=== PATIENT | female | born 1980 | race Caucasian/White ===

== ENCOUNTER 2017-05-20 11:10 | Inpatient (IN) | payer OTHER ==
[~2017-05-20] VITALS: Ht 152.4 cm; Wt 67.4 kg
[~2017-05-20 11:10] MED LIST: BUPRTAB PO; BUPRTAB51 PO; HMLI SQ; HYDR25TA5 PO; INSUINJ12 SQ; LAMO200T38 PO; MULTTAB58 PO; OMEG10007 PO; SPIR50TA2 PO
[2017-05-20] MEDS ORDERED: AMPH20TA2 PO (11:41)
[2017-05-20] MEDS ORDERED: LORA-741 PO (11:41)
[2017-05-20] MEDS ORDERED: QUET1TAB32 PO (11:41)
[2017-05-20] MEDS ORDERED: INSPMPHMLG SQ (11:41)
[2017-05-20] MEDS ORDERED: ZOLP5TAB PO (11:41)
[2017-05-20] MEDS ORDERED: AMPH30TA2 PO (11:41)
[2017-05-20] MEDS ORDERED: INSU1INJ33 SQ (11:41)
[2017-05-20] MEDS ORDERED: AMPH10TA2 PO (11:41)
[2017-05-20 11:48] LABS: URINE APPEARANCE CLEAR (CLEAR); URINE BILIRUBIN NEG (NEG); URINE COLOR YELLOW; URINE NITRITE NEG (NEG); URINE PH 6.5 (4.5-7.5); URINE SPECIFIC GRAVITY 1.009 (1.000-1.030); UROBILINOGEN NEG (NEG)
[2017-05-20 11:52] LABS: BASO % 0.6 %; BASO ABS # 0.04 K/uL (0-0.2); COMPLETE YES; EOS % 2.9 %; HEMATOCRIT 41.7 % (37-47); IG% 0.3 %; LYMPH % 30.1 %; LYMPH ABS # 2.16 K/uL (1.2-3.4); MEAN CELL VOLUME 95.6 fL (80-100); MEAN CORPUSCULAR HEMOGLOBIN 32.6 pg (25-34); MEAN CORPUSCULAR HGB CONC 34.1 g/dl (32-36); MEAN PLATELET VOLUME 8.9 fL (7.4-10.4); MONO % 8.5 %; NEUT % 57.6 %; PLATELET COUNT 310 K/uL (130-400); RED BLOOD COUNT 4.36 M/uL (4.2-5.4); WHITE BLOOD COUNT 7.17 K/uL (4.8-10.8)
[2017-05-20 11:54] LABS: MANUAL MICROSCOPIC REQUIRED? YES; REVIEW REQ? NO
--- NOTE | 2017-05-20 12:05 | EMERGENCY ROOM VISIT NOTE ---
History Report prepared by Nayla: Page Veras Under the Supervision of: Dr. Morgan Gregory M.D. First contact with patient: 11:18 Chief Complaint: MENTAL HEALTH EVALUATION Stated Complaint: DEPRESSION-EVAL FOR 3 [facility]OUTH History of Present Illness The patient is a 36 year old female who presents to the Emergency Room for a mental health evaluation. The patient has a history of depression and states that lately it has been getting much worse. She works for [employer] and states that her job is very stressful. She is also in a relationship that is stressful. Mother states that the patient appears to be more withdrawn lately. The patient states that she feels like her typical medications are no longer helping. She saw her psychiatrist about 2 weeks ago and was prescribed a new medication. She was experiencing extreme side effects from this medication so she has stopped taking it. The patient states that she has had some passive thoughts of hurting herself, but denies any concrete plans. She has been experiencing nausea, vomiting, and body aches which she thinks is secondary to her depression. The patient reports a 30 pound weight gain over the past year. She denies HI, visual or auditory hallucinations, fevers, numbness, weakness, trauma, injury, or assault. She has been sleeping fine but notes that she takes medications to help her sleep. She denies any overdose attempts. 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 She denies HI, visual or auditory hallucinations, trauma, injury, or assault. Review of Systems See HPI for pertinent positives & negatives. A total of 10 systems reviewed and were otherwise negative. Past Medical & Surgical Medical Problems: (1) BIPOLAR DISORDER, UNSPECIFIED (2) Depression (3) DIAB MICHELLE WO COMPL, TYPE II OR UNSPEC TYPE, NOT UNCNTRLD Old medical records were reviewed. Nurse's notes were reviewed and I agree with. Family History No pertinent history stated. Social History Smoking Status: Never Smoker Smokeless Tobacco Use: No Alcohol Use: occasionally Drug Use: marijuana Marital Status: , in relationship Housing Status: lives alone Occupation Status: employed Current/Historical Medications Scheduled Amphetamine-Dextroamphetamine 10MG (Adderall 10MG), 10 MG PO QAM Amphetamine-Dextroamphetamine 20MG (Adderall 20MG), 20 MG PO DAILY Amphetamine-Dextroamphetamine 30MG (Adderall 30MG), 30 MG PO QAM Bupropion Hcl (Wellbutrin Xl), 150 MG PO QAM Bupropion Hcl (Wellbutrin Xl), 300 MG PO QAM Insulin Degludec (Tresiba Flextouch), 28 UNITS SQ HS Insulin Human Lispro (Humalog), SQ AC Lamotrigine (Lamictal), 200 MG PO DAILY Multiple Vitamin (Multivitamin), 1 TABLET PO DAILY Quetiapine Fumarate (Seroquel), 2 TAB PO HS Zolpidem Tartrate (Ambien), 5 MG PO HS Scheduled PRN Lorazepam (Ativan), 0.5 MG PO Q12 PRN for Anxiety/Agitation Allergies Coded Allergies: No Known Allergies (Unverified , 05/20/17) Physical Exam Vital Signs Date Time Temp Pulse Resp B/P (MAP) Pulse Ox O2 Delivery O2 Flow Rate FiO2 05/20/17 14:16 75 18 138/82 100 Room Air 05/20/17 12:27 71 18 133/72 99 Room Air 05/20/17 11:14 36.4 81 18 163/87 100 Physical Exam General: Well developed well nourished non ill appearing young female in no acute distress, breathing comfortably on room air. Normal speech HEENT: Normal cephalic atraumatic. Pupils are equal round and reactive to light. Extraocular movements are intact. Oropharynx is pink with moist mucous membranes. No swelling of the mouth lips or tongue. Neck: Supple with a midline trachea. No meningeal signs or stiffness, no JVD or bruits. No Stridor. Chest: Clear to auscultation bilaterally. No wheezes or rhonchi. No increased work of breathing. Heart: regular rate and rhythm. Abdomen: Soft nontender, nondistended without rebound guarding or rigidity. Extremities: No cyanosis clubbing or edema. No calf tenderness or assymetry Spine/Back. Non tender to palpation. No CVA tenderness Skin: Good turgor without rashes. Neurologic exam: Cranial nerves two through 12 are intact. Motor and sensation are intact and symmetrical throughout. Psych: Mildly flattened affect. Medical Decision & Procedures Laboratory Results 05/20/17 11:39 Red Blood Count 4.36, Mean Corpuscular Volume 95.6, Mean Corpuscular Hemoglobin 32.6, Mean Corpuscular Hemoglobin Concent 34.1, Mean Platelet Volume 8.9, Neutrophils (%) (Auto) 57.6, Lymphocytes (%) (Auto) 30.1, Monocytes (%) (Auto) 8.5, Eosinophils (%) (Auto) 2.9, Basophils (%) (Auto) 0.6, Neutrophils # (Auto) 4.13, Lymphocytes # (Auto) 2.16, Monocytes # (Auto) 0.61, Eosinophils # (Auto) 0.21, Basophils # (Auto) 0.04 05/20/17 13:27 Test 05/20/17 11:23 05/20/17 11:39 05/20/17 13:27 Urine Color YELLOW Urine Appearance CLEAR (CLEAR) Urine pH 6.5 (4.5-7.5) Urine Specific [place] 1.009 (1.000-1.030) Urine Protein NEG (NEG) Urine Glucose (UA) NEG (NEG) Urine Ketones NEG (NEG) Urine Occult Blood NEG (NEG) Urine Nitrite NEG (NEG) Urine Bilirubin NEG (NEG) Urine Urobilinogen NEG (NEG) Urine Leukocyte Esterase TRACE (NEG) Urine WBC (Auto) /hpf (0-5) Urine RBC (Auto) /hpf (0-4) Urine Hyaline Casts (Auto) /lpf (0-5) Urine Epithelial Cells (Auto) /lpf (0-5) Urine Bacteria (Auto) (NEG) Urine RBC 0-4 /hpf (0-4) Urine WBC 5-10 /hpf (0-5) Urine Epithelial Cells 10-20 /lpf (0-5) Urine Other Crystals TALC (NONE PRSENT) Urine Bacteria NEG (NEG) Urine Opiates Screen NEG (NEG) Urine Methadone, Qualitative NEG (NEG) Urine Barbiturates NEG (NEG) Urine Phencyclidine (PCP) Level NEG (NEG) Ur Amphetamine/Methamphetamine POS (NEG) MDMA (Ecstasy) Screen POS (NEG) Urine Benzodiazepines Screen NEG (NEG) Urine Cocaine Metabolite NEG (NEG) Urine Marijuana (THC) POS (NEG) White Blood Count 7.17 K/uL (4.8-10.8) Red Blood Count 4.36 M/uL (4.2-5.4) Hemoglobin 14.2 g/dL (12.0-16.0) Hematocrit 41.7 % (37-47) Mean Corpuscular Volume 95.6 fL (80-100) Mean Corpuscular Hemoglobin 32.6 pg (25-34) Mean Corpuscular Hemoglobin Concent 34.1 g/dl (32-36) Platelet Count 310 K/uL (130-400) Mean Platelet Volume 8.9 fL (7.4-10.4) Neutrophils (%) (Auto) 57.6 % Lymphocytes (%) (Auto) 30.1 % Monocytes (%) (Auto) 8.5 % Eosinophils (%) (Auto) 2.9 % Basophils (%) (Auto) 0.6 % Neutrophils # (Auto) 4.13 K/uL (1.4-6.5) Lymphocytes # (Auto) 2.16 K/uL (1.2-3.4) Monocytes # (Auto) 0.61 K/uL (0.11-0.59) Eosinophils # (Auto) 0.21 K/uL (0-0.5) Basophils # (Auto) 0.04 K/uL (0-0.2) RDW Standard Deviation 40.6 fL (36.4-46.3) RDW Coefficient of Variation 11.5 % (11.5-14.5) Immature Granulocyte % (Auto) 0.3 % Immature Granulocyte # (Auto) 0.02 K/uL (0.00-0.02) Total Bilirubin 0.3 mg/dl (0.2-1) Direct Bilirubin 0.1 mg/dl (0-0.2) Aspartate Amino Transf (AST/SGOT) 20 U/L (15-37) Alanine Aminotransferase (ALT/SGPT) 31 U/L (12-78) Alkaline Phosphatase 94 U/L (45-117) Total Protein 7.4 gm/dl (6.4-8.2) Albumin 4.0 gm/dl (3.4-5.0) Lipase 107 U/L (73-393) Thyroid Stimulating Hormone (TSH) 1.540 uIu/ml (0.300-4.500) Human Chorionic Gonadotropin, Qual NEG (NEG) Salicylates Level < 1.7 mg/dl (2.8-20) Acetaminophen Level < 2 ug/ml (10-30) Ethyl Alcohol mg/dL < 3.0 mg/dl (0-3) Anion Gap 7.0 mmol/L (3-11) Est Creatinine Clear Calc Drug Dose 76.9 ml/min Estimated GFR () 99.3 Estimated GFR (Non- 85.7 BUN/Creatinine Ratio 9.2 (10-20) Calcium Level 9.4 mg/dl (8.5-10.1) Medications Administered Medications (Trade) Dose Ordered Sig/Fatimah Route Start Time Stop Time Status Last Admin Dose Admin Ibuprofen (Motrin Tab) 600 mg NOW STAT PO 05/20/17 13:12 05/20/17 13:13 DC 05/20/17 13:18 600 MG ED Course 1118: Past medical records reviewed. The patient was evaluated in room A7, and a complete history and physical examination were performed. 1312: Ibuprofen 600 mg PO 1500: [facility] has accepted the patient for further management. Medical Decision Differential diagnoses includes depression, anxiety, electrolyte or metabolic abnormality, infection, toxicologic process. This patient comes in as described above. She's had some increasing depression. She has denies any suicidal ideations. She was brought in here by her mother. Psychiatric she's been on meds which she says she's been taking but just feels she needs new medications or medication adjustment and that has not been successful as an outpatient. She has any suicidal or homicidal ideations. Blood work was obtained. She was medically cleared. There is nothing to suggest a toxicologic, infectious, electrolyte or metabolic abnormality. She was evaluated by her psychiatric case management team as well as [facility] and they're going to admit her voluntarily for further inpatient treatment and evaluation. Medication Reconcilliation Current Medication List: was personally reviewed by me Blood Pressure Screening Patient's blood pressure: Normal blood pressure Impression Primary Impression: Depression Scribe Attestation The scribe's documentation has been prepared under my direction and personally reviewed by me in its entirety. I confirm that the note above accurately reflects all work, treatment, procedures, and medical decision making performed by me. Departure Information Dispostion Mental Health Acute Care Referrals Marc Bowles D.O. (PCP) Forms HOME CARE DOCUMENTATION FORM, IMPORTANT VISIT INFORMATION Patient Instructions My [facility] Problem Qualifiers Primary Impression: Depression Depression Type: unspecified Qualified Codes: F32.9 - Major depressive disorder, single episode, unspecified
[2017-05-20 12:08] LABS: URINE RBC 0-4 /hpf (0-4)
[2017-05-20 12:10] LABS: URINE BACTERIA NEG (NEG)
[2017-05-20 12:12] LABS: BENZODIAZEPINE, URINE NEG (NEG); COCAINE,URINE NEG (NEG); PHENCYCLIDINE, URINE NEG (NEG)
[2017-05-20 12:20] LABS: PREG INTERNAL NEGATIVE QC NEG CLEAR BACKGROUND; PREG INTERNAL POSITIVE QC POS CONTROL LINE; THYROID STIMULATING HORMONE 1.54 uIu/ml (0.300-4.500)
[2017-05-20 12:31] LABS: ACETAMINOPHEN < 2 ug/ml (10-30)
[2017-05-20] MEDS ORDERED: IBUPROFEN 600 MG TAB PO STA (13:12)
[2017-05-20 13:51] LABS: BUN/CREATININE RATIO 9.2 (10-20); CALCIUM 9.4 mg/dl (8.5-10.1); CREATININE 0.86 mg/dl (0.60-1.20); POTASSIUM 4.3 mmol/L (3.5-5.1)
[2017-05-20 14:16] VITALS: O2SAT 100
[2017-05-20] MEDS ORDERED: MAGNESIUM HYDROXIDE SUSP 30 ML UDC PO PRN (15:00)
[2017-05-20] MEDS ORDERED: ACETAMINOPHEN 325 MG TAB PO PRN (15:00)
[2017-05-20] MEDS ORDERED: ALUMINUM/MAGNESIUM SUSP 30 ML UDC PO PRN (15:00)
[2017-05-20] MEDS ORDERED: hydrOXYzine HCL 25 MG TAB PO PRN ×2 (15:00)
[2017-05-20] MEDS ORDERED: SODIUM CHLORIDE 0.65% NA SOLN 45 ML (OCEAN) PRN (15:00)
[2017-05-20] MEDS ORDERED: BISMUTH SUBSALICYLATE PER ML OMNICELL CHARGE PO PRN (15:00)
[2017-05-20] MEDS ORDERED: LORAZEPAM 0.5 MG TAB PO PRN (15:00)
[2017-05-20] MEDS ORDERED: GLUCOSE 10 TABS/TUBE PO PRN (15:30)
[2017-05-20] MEDS ORDERED: GLUCOSE 40% GEL 15 GM TUBE PO PRN (15:30)
[2017-05-20] MEDS ORDERED: GLUCAGON FOR INJ 1 MG VIAL SQ PRN (15:30)
[2017-05-20] MEDS ORDERED: DEXTROSE 50% 50 ML SYR IV PRN (15:30)
[2017-05-20 17:32] VITALS: BP 114/76; PULSE 75; TEMP 36.8; Ht 152.4 cm; Wt 67.4 kg
[2017-05-20] MEDS ORDERED: QUETIAPINE FUMARATE 100 MG TAB PO SCH (21:00)
[2017-05-20] MEDS ORDERED: INSULIN GLARGINE SOLOSTAR 100 UNITS/ML 3 ML PEN SC SCH (21:00)
[2017-05-20] MEDS: ZOLPIDEM TARTRATE 5 MG TAB PO SCH (21:12)
[2017-05-20] MEDS ORDERED: TRESIBA SQ SCH (22:00)
[2017-05-21 06:51] VITALS: BP_SYST 100; BP_SYST 110; BP_DIAS 65; BP_DIAS 73; PULSE 64; PULSE 73; TEMP 36.5
--- NOTE | 2017-05-21 08:26 | Psychiatric History & Physical ---
History Date of Service May 21, 2017. Identifying Data Elise Box is a 36-year-old female who currently lives in [place], has a history of depression and cannabis abuse, and presented to the ER with worsening mood and SI with thoughts to OD on her insulin. She was admitted voluntarily. Chief Complaint "I knew it was time, I needed to, or something was gonna happen". History of Present Illness Patient reported to the emergency room yesterday reporting worsening depression and suicidality with thoughts to overdose on insulin or Ambien. Stressors include a stressful job working for [employer], and relationship with her boss , whom she is having an affair with. She reports mood has been worsening for the past 2 months, and that her psychiatrist has encouraged her to get inpatient treatment. She has been trying to exercise regularly, journal, and do things she enjoys, but mood has continued to worsen. She says she is "not very happy" with her outpatient psychiatrist, because "my meds are the same as they were when I was here 4 years ago, he tweaks them, but that's my main goal" in this admission. He saw her psychiatrist a couple of weeks ago and was started on an unknown medication, "I think it started with an F," which caused side effects, so she stopped it after 2 days. She had samples of it and cannot recall the name. She feels that her medications "aren't working anymore," and wanted to admission so that they could be reassessed. Her lamotrigine and bupropion XL were also increased recently. She has been on quetiapine for 6 months or so for sleep, and Ambien for a year for sleep, and she takes them every night, "I don't sleep unless I take them." She states Adderall was added about 2 years ago, added for "focus and as an antidepressant." She thinks it helps with energy and focus, but says she wants to "take a break from it while I 'm in here, get it out of my system and start fresh." She plans to resume it after discharge, "there's no way I'm gonna go off of that." She also has Ativan prn which she takes about twice a week. She reports a 20-30 pound weight gain over the past year. Daily anxiety, which is intermittent, but denies panic attacks. She denies any history of psychotic or manic symptoms. She does report monthly episodes of mood swings, untriggered, from normal to depressed, which last about a day. She reports "a marijuana addiction," and smokes 2 bowls a night, and thinks this has contributed to her weight gain. She also binge drinks up to 6 drinks in a setting. She says her primary stressors are work, her relationship, and her marijuana use. She states her job at [employer] is stressful due to "seeing bad things," and she uses exercise and socialization to deal with that stress. Her relationship with her boss is difficult, has been seeing him for over a year, and says it has "messed with my head a lot." She works there on the weekends, and says she "is cedrick forced to see him, and don' t want to end that relationship." She says she talks about it in therapy "all the time," and "there's too much there, I don't want to end it, he provides me companionship." She says "he's a wonderful man, and for some reason, it's just screwing with my head." She is stressed about her marijuana use as she has gained weight and thinks it is due to her smoking, then eating more. She likes it as "it numbs everything, it's a great feeling, being high is one of the greatest feelings I know." She has never had substance abuse treatment, "it's just something I have to do on my own." She is interested in looking into TMS, but is not sure if it covered. She also states she wants to "be out of here by Friday, I'm going to sign myself out if I'm not going to be discharged, because I have a life, I want to be out Friday so I can do things on Friday, and I have to work Friday." Past Psychiatric History Current OP Treatment: psychiatrist (Dr. Hill - since at least 2012), therapist (Paco Page x 1.5 years) Prior Psych Hospitalizations: [facility] (one previous admission in 2013 for depression and suicidality) Access to a Gun: No Suicide Attempts: No Past Medication Trials Citalopram Duloxetine Escitalopram Fluoxetine Venlafaxine XR Lamotrigine - started during 2013 hospitalization (along with Wellbutrin XL) Olanzapine Aripiprazole Something that starts with an "F," got sample recently, cannot recall name Additional Notes Diagnosis during previous hospitalization here was recurrent severe depression without psychosis. She has a history of cutting in high school. Past Medical/Surgical History History of Concussion/Seizure: Yes (1) DIAB MICHELLE WO COMPL, TYPE II OR UNSPEC TYPE, NOT UNCNTRLD (2) Overweight (BMI 25.0-29.9) PCP is Dr. Marc Bowles Allergies Allergies: Coded Allergies: No Known Allergies (Unverified , 05/20/17) Home Medications Scheduled Amphetamine-Dextroamphetamine 10MG (Adderall 10MG), 10 MG PO QAM Amphetamine-Dextroamphetamine 20MG (Adderall 20MG), 20 MG PO DAILY Amphetamine-Dextroamphetamine 30MG (Adderall 30MG), 30 MG PO QAM Bupropion Hcl (Wellbutrin Xl), 150 MG PO QAM Bupropion Hcl (Wellbutrin Xl), 300 MG PO QAM Insulin Degludec (Tresiba Flextouch), 28 UNITS SQ HS Insulin Human Lispro (Humalog), SQ AC Lamotrigine (Lamictal), 200 MG PO DAILY Multiple Vitamin (Multivitamin), 1 TABLET PO DAILY Quetiapine Fumarate (Seroquel), 2 TAB PO HS Zolpidem Tartrate (Ambien), 5 MG PO HS Scheduled PRN Lorazepam (Ativan), 0.5 MG PO Q12 PRN for Anxiety/Agitation Family History History of Suicide: No History of Substance Abuse: No Psychiatric History: Yes (maternal aunt and grandmother with depression) Alcohol Use Alcohol Use In Past 12 Months: Yes (Last use night of 6 drinks; typically 1 drink 1x/week) AUDIT Total Score: 3 Smoking Use Smoking Status: Never Smoker Substance History Admits to daily marijuana use, 2 bowls/night. Has caused weight gain, which she doesn't like. Personal History Lives in: [place] with her best friend Childhood: Raised by both parents, who are still together. Is not very connected with father, but mother is supportive. One younger brother who lives in [place]. 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 Worked at the [employer] in the past , but was fired. Relationship History: (was for 4 years, and years ago after he had an affair; now having an affair with her boss for the past year , who is ) Children: none Spiritual Affiliation: "I believe in God, I go to hinduism and pray." Legal History: none Psychological Trauma History: Denies Hx Traumatic Event Review of Systems Reviewed 10 systems; negative except as stated above. Examination Physical Examination A physical exam was performed [in the ER] [on the medical floor] prior to admission to the unit by [ ]. I accept that physical as correct/medical clearance for the inpatient physical exam. Vital Signs Vital Signs Past 12 Hours Date Time Temp Pulse Resp B/P (MAP) Pulse Ox O2 Delivery O2 Flow Rate FiO2 05/21/17 06:51 36.5 64 16 100/65 73 110/73 Laboratory Results Last 24 Hours Test 05/20/17 11:23 05/20/17 11:39 05/20/17 13:27 05/20/17 17:25 Urine Color YELLOW Urine Appearance CLEAR Urine pH 6.5 Urine Specific [place] 1.009 Urine Protein NEG Urine Glucose (UA) NEG Urine Ketones NEG Urine Occult Blood NEG Urine Nitrite NEG Urine Bilirubin NEG Urine Urobilinogen NEG Urine Leukocyte Esterase TRACE Urine WBC (Auto) /hpf Urine RBC (Auto) /hpf Urine Hyaline Casts (Auto) /lpf Urine Epithelial Cells (Auto) /lpf Urine Bacteria (Auto) Urine RBC 0-4 /hpf Urine WBC 5-10 /hpf Urine Epithelial Cells 10-20 /lpf Urine Other Crystals TALC Urine Bacteria NEG Urine Opiates Screen NEG Urine Methadone, Qualitative NEG Urine Barbiturates NEG Urine Phencyclidine (PCP) Level NEG Ur Amphetamine/Methamphetamine POS MDMA (Ecstasy) Screen POS Urine Benzodiazepines Screen NEG Urine Cocaine Metabolite NEG Urine Marijuana (THC) POS White Blood Count 7.17 K/uL Red Blood Count 4.36 M/uL Hemoglobin 14.2 g/dL Hematocrit 41.7 % Mean Corpuscular Volume 95.6 fL Mean Corpuscular Hemoglobin 32.6 pg Mean Corpuscular Hemoglobin Concent 34.1 g/dl Platelet Count 310 K/uL Mean Platelet Volume 8.9 fL Neutrophils (%) (Auto) 57.6 % Lymphocytes (%) (Auto) 30.1 % Monocytes (%) (Auto) 8.5 % Eosinophils (%) (Auto) 2.9 % Basophils (%) (Auto) 0.6 % Neutrophils # (Auto) 4.13 K/uL Lymphocytes # (Auto) 2.16 K/uL Monocytes # (Auto) 0.61 K/uL Eosinophils # (Auto) 0.21 K/uL Basophils # (Auto) 0.04 K/uL RDW Standard Deviation 40.6 fL RDW Coefficient of Variation 11.5 % Immature Granulocyte % (Auto) 0.3 % Immature Granulocyte # (Auto) 0.02 K/uL Total Bilirubin 0.3 mg/dl Direct Bilirubin 0.1 mg/dl Aspartate Amino Transf (AST/SGOT) 20 U/L Alanine Aminotransferase (ALT/SGPT) 31 U/L Alkaline Phosphatase 94 U/L Total Protein 7.4 gm/dl Albumin 4.0 gm/dl Lipase 107 U/L Thyroid Stimulating Hormone (TSH) 1.540 uIu/ml Human Chorionic Gonadotropin, Qual NEG Salicylates Level < 1.7 mg/dl Acetaminophen Level < 2 ug/ml Ethyl Alcohol mg/dL < 3.0 mg/dl Sodium Level 140 mmol/L Potassium Level 4.3 mmol/L Chloride Level 107 mmol/L Carbon Dioxide Level 26 mmol/L Anion Gap 7.0 mmol/L Blood Urea Nitrogen 8 mg/dl Creatinine 0.86 mg/dl Est Creatinine Clear Calc Drug Dose 76.9 ml/min Estimated GFR () 99.3 Estimated GFR (Non- 85.7 BUN/Creatinine Ratio 9.2 Random Glucose 130 mg/dl Calcium Level 9.4 mg/dl Bedside Glucose 117 mg/dl Test 05/20/17 21:17 Bedside Glucose 168 mg/dl Mental Examination During interview pt is: alert and oriented Impression / Recommendations Impression 36-year-old white female with recurrent depression and cannabis abuse who presents with worsening mood and suicidal ideation in the context of escalating substance use, and ongoing affair with a man, and job stress. She endorses SI with a plan to overdose, and is unable to contract for safety outside the hospital. She is willing or a trial of lithium as augmentation and to increase her quetiapine, while working on psychosocial stressors and decreasing substance abuse. Inventory Assets Strengths: "I have great coping skills," good support system Risk Factors Assessment : Yes /single/: Yes Higher / Fall in social status: No Access to guns: No Health problems: Yes Mental Health Diagnoses: Yes Substance use disorders: Yes Previous attempt: No Previous psychiatric stay: Yes Hopelessness: No Smoker: No Protective Factors Assessment Worship beliefs: Yes : No Responsible for young children: No Employed: Yes Stable relationships: Yes Recommendations (1) Depression -Reviewed medications with patient, and options for trying a different augmenting agent, at her request. Reviewed options of increasing quetiapine, or adding lithium. She would like to do both, so will start lithium 300mg qhs and increase quetiapine to 200mg qhs. Reviewed side effects of lithium, and not being other medications metabolized through the kidney, and the need for monitoring and lab work. Provided her with an up-to-date patient handout about the medication, and she consented to a trial. We will start 300 mg at bedtime tonight, and she will need a trough level after 5 days, which will likely need to be done as an outpatient. She would also like to increase the quetiapine, as sleep has been an issue, and she thinks this may help her decrease her cannabis use. Continue home doses of bupropion XL and lamotrigine. -Patient states she had a lipid profile done within the past year at [facility]. Will ask staff to get a release and send for those records so that they do not have to be repeated here. -Coordinate care with outpatient providers, and get records from Dr. Hill. -Encourage the patient to attend to participate in therapy and programming. Work on healthy coping skills and discharge safety plan. Encourage ongoing work on her relationship and job stress. (2) Cannabis abuse Brief intervention performed and was greater than 5 minutes in length. Patient is smoking marijuana daily, and admits that it is a problem for her, that she only feels good when she is high, and thinks it has contributed to her 30 pound weight gain. Although she wants to stop, she is not willing to commit to getting substance abuse treatment. She was educated about the risks of ongoing substance abuse, and the recommendations for abstinence. (3) DIAB MICHELLE WO COMPL, TYPE II OR UNSPEC TYPE, NOT UNCNTRLD Continue home regimen, diabetic diet, and consult diabetic pharmacist. (4) Overweight (BMI 25.0-29.9) Encourage abstinence from cannabis, continued exercise and healthy diet. CPT Code Initial Hospital Care: 00080 Problem Qualifiers (1) Depression: Depression Type: unspecified Qualified Codes: F32.9 - Major depressive disorder, single episode, unspecified
[2017-05-21] MEDS ORDERED: BuPROPion XL 150 MG TABCR PO SCH (09:00)
[2017-05-21] MEDS: MULTIVITAMIN TAB PO SCH (09:22)
[2017-05-21] MEDS: BuPROPion XL 150 MG TABCR PO SCH (09:22)
[2017-05-21] MEDS ORDERED: PHARMACY GLYCEMIC MGMT CONSULT PRN (12:24)
[2017-05-21] MEDS ORDERED: INSULIN HUMAN LISPRO 100 UNITS/ML 3ML PEN SC SCH (13:00)
[2017-05-21] MEDS: INSULIN HUMAN LISPRO (humaLOG) 100 UNITS/ML VIAL SC SCH ×3 (14:11→20:07)
--- NOTE | 2017-05-21 15:10 | Pharmacy Progress Note ---
Glycemic Control Intl Consult Date of Service May 21, 2017. Scope Glycemic Pharmacist consulted by Dr Davenport on 05/21/17 for glycemic control and to write orders per [facility] inpatient glycemic control protocol Objective Weight (Kilograms): 67.400 Accuchecks BSG (last 24hrs): Test 05/20/17 17:25 05/20/17 21:17 05/21/17 08:40 05/21/17 12:04 Bedside Glucose 117 mg/dl (70-90) 168 mg/dl (70-90) 176 mg/dl (70-90) 142 mg/dl (70-90) Recent Pertinent Medications Outpatient Anti-diabetic Regimen: * Tresiba (insulin degludec) 26-28 units SQ HS * Humalog SSI --> only uses 1-3 units with meals The patient is currently receiving: * Basal insulin: Tresiba (insulin degludec) 28 units every 24 hours given at bedtime * Correctional Insulin: Novolog Correction per scale ACHS Goal Range: Low 110 mg/dL - High 140 mg/dL Correction Factor: 40 mg/dL/unit * Prandial insulin: Per carb ratio of 1 unit per 15 grams CHO consumed Assessment & Plan ASSESSMENT: * 36yo T1DM female with unknown degree of outpatient control. No recent A1c in chart. * Pt states that her outpatient control has improved since switching from Lantus to Tresiba. Pt used to follow with [facility] endo but now follows with PCP Dr Bowles. * Discussed outpatient regimen with patient and that her current regimen dosing distribution puts her at risk for hypo since her regimen is weighted towards basal insulin. Her basal insulin is covering CHO from meals since she is only take a few units of Humalog and 28 units of Tresiba. She likes her insulin regimen this way. She said that she took 26 units last night instead of 28 units since she didn't eat much yesterday and was anticipating not eating much today. She woke up this morning feeling shaky and just got a juice to self treat suspected hypo. She did not check her BSG but felt much better after the juice. * Pt is requesting assistance with Rx cost --> will look into enrolling patient with [facility] PLAN FOR INPATIENT GLYCEMIC CONTROL: * Basal Insulin * Continue pt own med of Tresiba (insulin degludec), will reduce dose slightly to 24 units SQ HS d/t suspected hypo this morning. * Bolus Insulin * NovoLog per scale ACHS or Q6hrs while NPO * Goal Range: Low 110 mg/dL - High 140 mg/dL * Correction Factor: 45 mg/dL/unit * Nutritional / Prandial insulin per carb ratio of 1 unit per 18 grams CHO consumed * A1c with AM labs * Pursue enrollment with [facility] to help with high cost of insulin * Please note that the plan above was derived based on current level of insulin resistance and hospital stress. These recommendations are appropriate for inpatient admission only. Plan of care upon discharge will need to be reassessed to avoid potential outpatient hypo/hyperglycemia. Thank you.
[2017-05-21] MEDS: TRESIBA SQ SCH (20:09)
[2017-05-21] MEDS: LITHIUM CARBONATE SR 300 MG TAB (LITHOBID) PO SCH (21:09)
[2017-05-21] MEDS: ZOLPIDEM TARTRATE 5 MG TAB PO SCH (21:09)
[2017-05-21] MEDS: QUETIAPINE FUMARATE 200 MG TAB PO SCH (21:09)
[2017-05-22 06:48] VITALS: BP_SYST 103; BP_SYST 111; BP_DIAS 69; BP_DIAS 70; PULSE 62; PULSE 67; TEMP 36.9
[2017-05-22 06:57] LABS: ESTIMATED AVERAGE GLUCOSE 169 mg/dl; HA1C FLAG Normal (Normal)
[2017-05-22] MEDS: MULTIVITAMIN TAB PO SCH (08:46)
[2017-05-22] MEDS: BuPROPion XL 150 MG TABCR PO SCH (08:46)
[2017-05-22] MEDS: INSULIN HUMAN LISPRO (humaLOG) 100 UNITS/ML VIAL SC SCH ×4 (09:15→21:01)
--- NOTE | 2017-05-22 13:02 | Psychiatric Progress Notes ---
Progress Note Date of Service May 22, 2017. Interval History Elise Box is a 36-year-old female who currently lives in [place], has a history of depression and cannabis abuse, and presented to the ER with worsening mood and SI with thoughts to OD on her insulin. She was admitted voluntarily. Chief Complaint "OKay". Subjective Patient was seen & assessed interval progress reviewed with Nursing. Staff report she is going to groups and participating, has been cooperative and pleasant in her interactions with others, and had a visit with her mother last evening. She continues to decline a family meeting, and continues to state that she wants to be discharged on Friday. She requested Ativan yesterday for a panic attack, and felt it was helpful. Today, the patient states mood is improved feels she is making progress in groups, "it's nice to know that other people have the same problems as I do." She is also journalling a lot, which she finds helpful. She denies SI, "I've only ever had passive thoughts, wanting to go to sleep and never wake up." She notes she spends time journaling daily, and finds it very helpful to go back and read it later, to identify patterns and triggers. She wants to work on cutting back on marijuana, "and the people I spend time with." She thinks she could spend time with her boyfriend without having sexual contact, "just as friends," although she has not talked to him about it, and doesn't even want him to know she is in the hospital, "I can't put that stress on him". She says she was on Abilify 15m daily and stopped it "cold turkey" a week or two before her symptoms worsened. She was supposed to start a new medication in it's place , the name of which she can't recall. She is tolerating the medication changes well, and denies side effects. She is hopeful that things will continue to improve. She states that she wants to be discharged tomorrow, and wants to make sure that there will be no problems with this. She states that she has family coming into town for the weekend. She is requesting to resume her Adderall 40 mg every morning tomorrow morning, stating that she just wanted to take a break from it for a couple of days, and plans to resume it when she leaves the hospital. She slept well last night, and had no hangover or grogginess this morning. Sleep Information Total Hours of Sleep: 7.75 Meal Information Percent of Breakfast Consumed: 25 Percent of Lunch Consumed: 100 Percent of Dinner Consumed: 50 Mental Status Exam During interview pt is: alert and oriented, cooperative Appearance: appropriately dressed, appropriately groomed Eye contact is: good Motor behavior is: steady gait & station, no abnormal motor movements Speech: normal in rate, rhythm & volume Affect: mood congruent, other (mildly depressed, but reactive and appropriate) Mood is: other Thought process: goal directed Thought content: reality based without delusions Suicidal thought are: denied Homicidal thoughts are: denied Hallucinations: denies auditory, denies visual Cognition: memory grossly intact, attention grossly intact, language grossly intact Intelligence estimated to be: average Insight: fair Judgement: fair Impression 36-year-old white female with recurrent depression and cannabis abuse who presents with worsening mood and suicidal ideation in the context of escalating substance use, and ongoing affair with a man, and job stress. She endorsed SI with a plan to overdose on admission and was unable to contract for safety outside the hospital. She is willing for a trial of lithium as augmentation and to increase her quetiapine, while working on psychosocial stressors and decreasing substance abuse. Plan (1) Depression -Reviewed medications with patient, and options for trying a different augmenting agent, at her request. Reviewed options of increasing quetiapine, or adding lithium. She would like to do both, so will start lithium 300mg qhs and increase quetiapine to 200mg qhs. Reviewed side effects of lithium, and not being other medications metabolized through the kidney, and the need for monitoring and lab work. Provided her with an up-to-date patient handout about the medication, and she consented to a trial. We will start 300 mg at bedtime tonight, and she will need a trough level after 5 days, which will likely need to be done as an outpatient. She would also like to increase the quetiapine, as sleep has been an issue, and she thinks this may help her decrease her cannabis use. Continue home doses of bupropion XL and lamotrigine. -Patient states she had a lipid profile done within the past year at [facility]. Will ask staff to get a release and send for those records so that they do not have to be repeated here. -Coordinate care with outpatient providers, and get records from Dr. Hlil. -Encourage the patient to attend to participate in therapy and programming. Work on healthy coping skills and discharge safety plan. Encourage ongoing work on her relationship and job stress. 05/22 -Continue increased dose of quetiapine and lithium for augmentation of antidepressant treatment. -Patient is requesting to resume Adderall 40 mg every morning tomorrow. We'll defer ongoing management of this medication to her prescribing psychiatrist, Dr. Hill. Reviewed concerns with the patient regarding her ongoing substance abuse and the fact that she is on numerous controlled substances. -Patient is requesting to be discharged home tomorrow. She has a follow-up appointment with her therapist on 05/27/2017, and will need an appointment scheduled with Dr. Hill prior to discharge. -Fasting labs received from [facility]: Last performed on 11/04/2016, cholesterol was elevated at 207, but triglycerides, LDL, and HDL were normal. Hemoglobin A1c was performed this morning and was elevated at 7.5. She will need to follow-up with her PCP for ongoing management. (2) Cannabis abuse Brief intervention performed and was greater than 5 minutes in length. Patient is smoking marijuana daily, and admits that it is a problem for her, that she only feels good when she is high, and thinks it has contributed to her 30 pound weight gain. Although she wants to stop, she is not willing to commit to getting substance abuse treatment. She was educated about the risks of ongoing substance abuse, and the recommendations for abstinence. 05/22 - continue to discuss ways to decrease cannabis use. (3) DIAB MICHELLE WO COMPL, TYPE II OR UNSPEC TYPE, NOT UNCNTRLD Continue home regimen, diabetic diet, and consult diabetic pharmacist. (4) Overweight (BMI 25.0-29.9) Encourage abstinence from cannabis, continued exercise and healthy diet. Discharge / Aftercare Planning Primary Care Physician: Name: Dr Marc Bowles Date of Appointment: Jul 30, 2017 Time of Appointment: 8:35am Psychiatrist: Name: Dr Hill Date of Appointment: Jun 02, 2017 Time of Appointment: 12:30pm Therapist: Name: Paco Casanova Date of Appointment: May 27, 2017 Time of Appointment: 9:00am Visit Code E&M Code: 71794 Inventory Assets Strengths: "I have great coping skills," good support system Risk Factors Assessment : Yes /single/: Yes Higher / Fall in social status: No Health problems: Yes Mental Health Diagnoses: Yes Substance use disorders: Yes Previous attempt: No Previous psychiatric stay: Yes Hopelessness: No Smoker: No Protective Factors Assessment Jain beliefs: Yes : No Responsible for young children: No Employed: Yes Stable relationships: Yes Data Vital Signs Last 24 Hrs: Date Time Temp Pulse Resp B/P (MAP) Pulse Ox O2 Delivery O2 Flow Rate FiO2 05/22/17 06:48 36.9 62 16 103/69 67 111/70 Meds Administered Last 24 Hrs: Meds Administered (Past 24Hrs) Medications (Trade) Dose Ordered Sig/Fatimah Route Start Time Stop Time Status Last Admin Dose Admin Ibuprofen (Motrin Tab) 600 mg NOW STAT PO 05/20/17 13:12 05/20/17 13:13 DC 05/20/17 13:18 600 MG Acetaminophen (Tylenol Tab) 650 mg Q4H PRN PO 05/20/17 15:00 06/19/17 14:59 05/21/17 17:19 650 MG Bupropion HCl (Wellbutrin-Xl Tab) 450 mg QAM PO 05/21/17 09:00 06/20/17 08:59 05/22/17 08:46 450 MG Lamotrigine (Lamictal Tab) 200 mg DAILY PO 05/21/17 09:00 06/20/17 08:59 05/22/17 08:45 200 MG Lorazepam (Ativan Tab) 0.5 mg DAILY PRN PO 05/20/17 15:00 06/19/17 14:59 05/21/17 10:36 0.5 MG Multivitamins (Multivitamin Tab) 1 tab DAILY PO 05/21/17 09:00 06/20/17 08:59 05/22/17 08:46 1 TAB Quetiapine Fumarate (seroQUEL TAB) 100 mg HS PO 05/20/17 21:00 05/21/17 12:20 DC 05/20/17 21:12 100 MG Zolpidem Tartrate (Ambien Tab) 5 mg HS PO 05/20/17 21:00 06/19/17 20:59 05/21/17 21:09 5 MG Non-Formulary Medication (Non-Formulary Patient'S Own Med) 28 ea HS SQ 05/20/17 22:00 05/21/17 15:10 DC 05/20/17 21:19 26 EA Quetiapine Fumarate (seroQUEL TAB) 200 mg HS PO 05/21/17 22:00 06/19/17 20:59 05/21/17 21:09 200 MG [place] Carbon[place] (Lithobid Tab) 300 mg HS PO 05/21/17 22:00 06/20/17 21:59 05/21/17 21:09 300 MG Insulin Human Lispro (humaLOG) SLIDING SCALE ACHS SC 05/21/17 12:00 06/20/17 11:59 05/21/17 14:11 2 UNITS Non-Formulary Medication (Non-Formulary Patient'S Own Med) 24 ea HS SQ 05/21/17 22:00 06/20/17 21:59 05/21/17 20:09 24 EA Lab Results Last 24 Hrs: Last 24 Hours Test 05/21/17 17:01 05/21/17 20:06 05/22/17 06:27 05/22/17 07:37 Bedside Glucose 160 mg/dl 178 mg/dl 162 mg/dl Estimated Average Glucose 169 mg/dl Hemoglobin A1c 7.5 % Problem Qualifiers (1) Depression: Depression Type: unspecified Qualified Codes: F32.9 - Major depressive disorder, single episode, unspecified
[2017-05-22] MEDS: ZOLPIDEM TARTRATE 5 MG TAB PO SCH (21:14)
[2017-05-22] MEDS: QUETIAPINE FUMARATE 200 MG TAB PO SCH (21:15)
[2017-05-22] MEDS: TRESIBA SQ SCH (21:15)
[2017-05-22] MEDS: LITHIUM CARBONATE SR 300 MG TAB (LITHOBID) PO SCH (21:15)
[2017-05-23 07:01] VITALS: BP_SYST 102; BP_SYST 105; BP_DIAS 65; BP_DIAS 71; PULSE 67; PULSE 73; TEMP 36.7
[2017-05-23] MEDS: INSULIN HUMAN LISPRO (humaLOG) 100 UNITS/ML VIAL SC SCH (08:00)
[2017-05-23] MEDS: BuPROPion XL 150 MG TABCR PO SCH (08:46)
[2017-05-23] MEDS: MULTIVITAMIN TAB PO SCH (08:46)
[2017-05-23] MEDS ORDERED: AMPHETAMINE ASP/SULF/DEXTRAMPH 10 MG TAB PO SCH (09:00)
[2017-05-23] MEDS ORDERED: QUET1TAB10 PO (09:14)
[2017-05-23] MEDS ORDERED: LTHCR300 PO (09:14)
--- NOTE | 2017-05-23 09:26 | Discharge Instructions ---
Discharge Information Report Includes Report will include the: Discharge Instructions & Summary Admission Admission Date / Time: May 20, 2017 at 15:00 Reason for Admission: Depression Discharge Discharge Diagnosis / Problem: bipolar depression Condition at Discharge: Good Discharge Goals Goal(s): Decrease discomfort, Improve disease control, Prevent Disease Progression Activity Recommendations Activity Limitations: resume your previous activity . Instructions / Follow-Up Instructions / Follow-Up . SPECIAL CARE INSTRUCTIONS: 1. Follow through with your scheduled aftercare appointments. If unable to keep an appointment, please call to reschedule. 2. Take your medication only as prescribed. Medication should not be changed or stopped without the approval of your doctor. In the event of worsening symptoms or concerns about side effects, contact your doctor immediately. 3. Utilize new healthy coping skills, anger management skills, and stress management skills learned during your hospitalization. Journal feelings and process them with a support person. Identify stressors or situations that may result in relapse, deterioration or inappropriate behaviors and develop a plan to deal with those issues. 4. If your coping skills are ineffective and you are in crisis, contact your outpatient providers for direction. If unable to reach your providers, please call the CAN HELP LINE AT or go to the closest Emergency Room. 5. Avoid alcohol and un-prescribed drugs. 6. You have been provided with the Mental Health Advance Directives Pamphlet for your review. AFTERCARE APPOINTMENTS: * Please call your insurance company prior to your scheduled appointment to confirm your aftercare providers are covered. Take your insurance information to your appointments. . Discharge / Aftercare Planning Primary Care Physician: Name: Dr Marc Bowles Date of Appointment: Jul 30, 2017 Time of Appointment: 8:35am Psychiatrist: Name: Dr Hill Date of Appointment: Jun 02, 2017 Time of Appointment: 12:30pm Therapist: Name Of Therapist: Paco Casanova Date of Appointment: May 27, 2017 Time of Appointment: 9:00am . Follow-Up Care Plan for Follow-Up Care: The patient will see her regular psychiatrist on June 02 Current Hospital Diet Patient's current hospital diet: Diabetes Type 1 Diet Discharge Diet Recommended Diet: Diabetes Type 1 Diet Procedures Procedures Performed: No Pending Studies Pending Studies at Discharge: No Medical Emergencies . Who to Call and When: Medical Emergencies: For questions or emergencies related to your hospital stay, please contact the Inpatient Behavioral Health Unit at [phone]. A refrigerator assembler is on-call 17/03 for the Behavioral Health Unit for emergencies At any time you feel your situation is an emergency, you may also call 911 immediately. . 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 Advance Directives Reason: Declines as Mental Health Visit. Discharge Summary Admission HPI Per the Admitting provider: Patient reported to the emergency room yesterday reporting worsening depression and suicidality with thoughts to overdose on insulin or Ambien. Stressors include a stressful job working for [employer], and relationship with her boss , whom she is having an affair with. She reports mood has been worsening for the past 2 months, and that her psychiatrist has encouraged her to get inpatient treatment. She has been trying to exercise regularly, journal, and do things she enjoys, but mood has continued to worsen. She says she is "not very happy" with her outpatient psychiatrist, because "my meds are the same as they were when I was here 4 years ago, he tweaks them, but that's my main goal" in this admission. He saw her psychiatrist a couple of weeks ago and was started on an unknown medication, "I think it started with an F," which caused side effects, so she stopped it after 2 days. She had samples of it and cannot recall the name. She feels that her medications "aren't working anymore," and wanted to admission so that they could be reassessed. Her lamotrigine and bupropion XL were also increased recently. She has been on quetiapine for 6 months or so for sleep, and Ambien for a year for sleep, and she takes them every night, "I don't sleep unless I take them." She states Adderall was added about 2 years ago, added for "focus and as an antidepressant." She thinks it helps with energy and focus, but says she wants to "take a break from it while I 'm in here, get it out of my system and start fresh." She plans to resume it after discharge, "there's no way I'm gonna go off of that." She also has Ativan prn which she takes about twice a week. She reports a 20-30 pound weight gain over the past year. Daily anxiety, which is intermittent, but denies panic attacks. She denies any history of psychotic or manic symptoms. She does report monthly episodes of mood swings, untriggered, from normal to depressed, which last about a day. She reports "a marijuana addiction," and smokes 2 bowls a night, and thinks this has contributed to her weight gain. She also binge drinks up to 6 drinks in a setting. She says her primary stressors are work, her relationship, and her marijuana use. She states her job at [employer] is stressful due to "seeing bad things," and she uses exercise and socialization to deal with that stress. Her relationship with her boss is difficult, has been seeing him for over a year, and says it has "messed with my head a lot." She works there on the weekends, and says she "is cedrick forced to see him, and don' t want to end that relationship." She says she talks about it in therapy "all the time," and "there's too much there, I don't want to end it, he provides me companionship." She says "he's a wonderful man, and for some reason, it's just screwing with my head." She is stressed about her marijuana use as she has gained weight and thinks it is due to her smoking, then eating more. She likes it as "it numbs everything, it's a great feeling, being high is one of the greatest feelings I know." She has never had substance abuse treatment, "it's just something I have to do on my own." She is interested in looking into TMS, but is not sure if it covered. She also states she wants to "be out of here by Friday, I'm going to sign myself out if I'm not going to be discharged, because I have a life, I want to be out Friday so I can do things on Friday, and I have to work Friday. Hospital Course (1) Depression -Reviewed medications with patient, and options for trying a different augmenting agent, at her request. Reviewed options of increasing quetiapine, or adding lithium. She would like to do both, so will start lithium 300mg qhs and increase quetiapine to 200mg qhs. Reviewed side effects of lithium, and not being other medications metabolized through the kidney, and the need for monitoring and lab work. Provided her with an up-to-date patient handout about the medication, and she consented to a trial. We will start 300 mg at bedtime tonight, and she will need a trough level after 5 days, which will likely need to be done as an outpatient. She would also like to increase the quetiapine, as sleep has been an issue, and she thinks this may help her decrease her cannabis use. Continue home doses of bupropion XL and lamotrigine. -Patient states she had a lipid profile done within the past year at [facility]. Will ask staff to get a release and send for those records so that they do not have to be repeated here. -Coordinate care with outpatient providers, and get records from Dr. Hill. -Encourage the patient to attend to participate in therapy and programming. Work on healthy coping skills and discharge safety plan. Encourage ongoing work on her relationship and job stress. 05/22 -Continue increased dose of quetiapine and lithium for augmentation of antidepressant treatment. -Patient is requesting to resume Adderall 40 mg every morning tomorrow. We'll defer ongoing management of this medication to her prescribing psychiatrist, Dr. Hill. Reviewed concerns with the patient regarding her ongoing substance abuse and the fact that she is on numerous controlled substances. -Patient is requesting to be discharged home tomorrow. She has a follow-up appointment with her therapist on 05/27/2017, and will need an appointment scheduled with Dr. Hill prior to discharge. -Fasting labs received from [facility]: Last performed on 11/04/2016, cholesterol was elevated at 207, but triglycerides, LDL, and HDL were normal. Hemoglobin A1c was performed this morning and was elevated at 7.5. She will need to follow-up with her PCP for ongoing management. (2) Cannabis abuse Brief intervention performed and was greater than 5 minutes in length. Patient is smoking marijuana daily, and admits that it is a problem for her, that she only feels good when she is high, and thinks it has contributed to her 30 pound weight gain. Although she wants to stop, she is not willing to commit to getting substance abuse treatment. She was educated about the risks of ongoing substance abuse, and the recommendations for abstinence. 05/22 - continue to discuss ways to decrease cannabis use. (3) DIAB MICHELLE WO COMPL, TYPE II OR UNSPEC TYPE, NOT UNCNTRLD Continue home regimen, diabetic diet, and consult diabetic pharmacist. (4) Overweight (BMI 25.0-29.9) Encourage abstinence from cannabis, continued exercise and healthy diet. Risk Factors Assessment : Yes /single/: Yes Higher / Fall in social status: No Health problems: Yes Mental Health Diagnoses: Yes Substance use disorders: Yes Previous attempt: No Previous psychiatric stay: Yes Hopelessness: No Smoker: No Protective Factors Assessment Confucianist beliefs: Yes : No Responsible for young children: No Employed: Yes Stable relationships: Yes Day of Discharge Assessment COURSE OF HOSPITALIZATION: The patient was on our unit for 3 days after presenting to the emergency room with acute depression and suicidality. This occurred in the setting of the patient having an affair with her boss. She immediately submitted her 72 hour notice to withdraw from treatment which will tomorrow. During her stay her medications were adjusted to include increasing Seroquel to 200 mg at bedtime and starting her on lithium 300 mg at bedtime. She participated in groups and discussed her current stressors. She also has chronically abused marijuana which she will not consider backing off from. She does not see this as a problem in her life. Her mother visited during her stay and was supportive although the patient did not want a family meeting. 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 She denied any further suicidal thinking throughout her stay. Recommendations were made for her to abstain from cannabis. DAY OF DISCHARGE ASSESSMENT: Today the patient feels that she is ready for discharge. She does not want to revoke her 72 hour notice and there are no grounds to keep her against her will. She says that the medication adjustments have helped her to feel more stable and she plans to continue on them. She denies any suicidal or homicidal ideation. Today she is casually and appropriately dressed and groomed. Eye contact is good. Gait and station are within normal limits. Affect is restricted. Speech is of normal rate volume and tone. Thoughts are organized, goal-directed, without evidence of thought disorder. Recent and remote memory are intact per conversation. Intelligence is estimated to be average. Insight and judgment are improved over admission. Laboratory Test 05/20/17 11:23 05/20/17 11:39 05/20/17 13:27 05/22/17 06:27 Urine Color YELLOW Urine Appearance CLEAR Urine pH 6.5 Urine Specific [place] 1.009 Urine Protein NEG Urine Glucose (UA) NEG Urine Ketones NEG Urine Occult Blood NEG Urine Nitrite NEG Urine Bilirubin NEG Urine Urobilinogen NEG Urine Leukocyte Esterase TRACE Urine WBC (Auto) Urine RBC (Auto) Urine Hyaline Casts (Auto) Urine Epithelial Cells (Auto) Urine Bacteria (Auto) Urine RBC 0-4 Urine WBC 5-10 Urine Epithelial Cells 10-20 Urine Other Crystals TALC Urine Bacteria NEG Urine Opiates Screen NEG Urine Methadone, Qualitative NEG Urine Barbiturates NEG Urine Phencyclidine (PCP) Level NEG Urine Amphetamines Confirmation Pending Ur Amphetamine/Methamphetamine POS Urine Methamphetamine Confirmation Pending Urine MDE-amphetamine (MDEA) Pending Ur Methylenedioxyamphetamine (MDA) Pending MDMA (Ecstasy) Screen POS Methylenedioxymethamphetamine (MDMA Pending Urine Benzodiazepines Screen NEG Urine Cocaine Metabolite NEG Urine Marijuana (THC) POS Urine Marijuana (THC Carboxy Acid) Pending White Blood Count 7.17 Red Blood Count 4.36 Hemoglobin 14.2 Hematocrit 41.7 Mean Corpuscular Volume 95.6 Mean Corpuscular Hemoglobin 32.6 Mean Corpuscular Hemoglobin Concent 34.1 Platelet Count 310 Mean Platelet Volume 8.9 Neutrophils (%) (Auto) 57.6 Lymphocytes (%) (Auto) 30.1 Monocytes (%) (Auto) 8.5 Eosinophils (%) (Auto) 2.9 Basophils (%) (Auto) 0.6 Neutrophils # (Auto) 4.13 Lymphocytes # (Auto) 2.16 Monocytes # (Auto) 0.61 Eosinophils # (Auto) 0.21 Basophils # (Auto) 0.04 RDW Standard Deviation 40.6 RDW Coefficient of Variation 11.5 Immature Granulocyte % (Auto) 0.3 Immature Granulocyte # (Auto) 0.02 Total Bilirubin 0.3 Direct Bilirubin 0.1 Aspartate Amino Transferase (AST) 20 Alanine Aminotransferase (ALT) 31 Alkaline Phosphatase 94 Total Protein 7.4 Albumin 4.0 Lipase 107 Thyroid Stimulating Hormone (TSH) 1.540 Human Chorionic Gonadotropin, Qual NEG Salicylates Level < 1.7 Acetaminophen Level < 2 Ethyl Alcohol mg/dL < 3.0 Sodium Level 140 Potassium Level 4.3 Chloride Level 107 Carbon Dioxide Level 26 Anion Gap 7.0 Blood Urea Nitrogen 8 Creatinine 0.86 Est Creatinine Clear Calc Drug Dose 76.9 Estimated GFR () 99.3 Estimated GFR (Non- 85.7 BUN/Creatinine Ratio 9.2 Random Glucose 130 Calcium Level 9.4 Estimated Average Glucose 169 Hemoglobin A1c 7.5 Test 05/22/17 20:59 05/23/17 08:30 POC Glucose 167 110 Total Time Total Time Spent (min): Greater than 30 minutes Total Time Included: examination of the patient, discharge planning, medication reconciliation, communication with other providers Tobacco Cessation at Discharge Smoking Status: Never Smoker FDA approved Prescription: non-smoker Problem Qualifiers (1) Depression: Depression Type: unspecified Qualified Codes: F32.9 - Major depressive disorder, single episode, unspecified
[2017-05-23] MEDS ORDERED: TRESIBA SQ SCH (22:00)
== END 2017-05-23 11:13 | disposition home or self-care (01) | DRG 881 ==
LOC: C.EDB 11:13 → C.MHU 15:00
PROVIDERS: ADMIT Psychiatry & Neurology Psychiatry; ATTEND Psychiatry & Neurology Psychiatry
DX: F32.9 Major depressive disorder, single episode, unspecified (principal); E11.9 Type 2 diabetes mellitus without complications; F12.10 Cannabis abuse, uncomplicated; E66.9 Obesity, unspecified; Z79.4 Long term (current) use of insulin; Z68.25 Body mass index [BMI] 25.0-25.9, adult

== ENCOUNTER → 2017-09-16 | Outpatient (CLI) | payer OTHER ==
[~2017-09-16] MED LIST changes: +AMPH10TA2 PO; +AMPH30TA2 PO; -HMLI SQ; -HYDR25TA5 PO; +INSPMPHMLG SQ; +INSU1INJ33 SQ; -INSUINJ12 SQ; +LAMO200T35 PO; -LAMO200T38 PO; +LORA-741 PO; +LTHCR300 PO; -OMEG10007 PO; -SPIR50TA2 PO; +ZOLP5TAB PO
== END | disposition home or self-care (01) ==
LOC: C.RDSM 08:00
PROVIDERS: ATTEND Orthopaedic Surgery Sports Medicine
DX: M25.512 Pain in left shoulder (principal)

== ENCOUNTER → 2017-11-07 | Outpatient (CLI) | payer OTHER ==
--- NOTE | 2017-11-07 17:20 | DIAGNOSTIC IMAGING REPORT ---
L UPPER EXT JOINT WITHOUT CLINICAL HISTORY: LEFT SHOULDER IMPINGEMENT SYNDROME pain TECHNIQUE: MRI multi axial acquisition COMPARISON STUDY: None FINDINGS: Signal characteristics the osseous structures demonstrate a subtle Hill-Sachs type deformity of the posterolateral aspect of the humeral head. Signal characteristics of all remaining osseous structures are unremarkable. Evaluation of the rotator cuff demonstrates a partial laminar thickness tear of the subscapularis tendon with thickening of the proximal aspect of the tendon at and immediately adjacent to its insertion site. Supraspinatus tendon demonstrates considerable tendinopathy with a partial tear at its superior surface. The infraspinatus tendon is unremarkable. There is mild tendinopathy of the biceps tendon. Glenoid labrum demonstrates slight apical truncation of the posterior labral margin with a small hairline tear of the anterior margin of the anterior labrum. Mild matrix deterioration is present. IMPRESSION: 1. High-grade partial thickness tear subscapularis tendon. 2. High-grade partial thickness tear superior surface supraspinatus tendon. 3. Considerable tendinopathy of the supraspinatus. 4. Biceps tendon tendinopathy. 5. Mild matrix deterioration of the glenoid labrum with truncation of the posterior labral apex as well as a small surface tear of the anterior labral margin. The above report was generated using voice recognition software. It may contain grammatical, syntax or spelling errors. Electronically signed by: Eh Bryant M.D. 11/07/2017 5:19 PM Dictated Date/Time: 11/07/2017 5:11 PM
== END | disposition home or self-care (01) ==
LOC: C.MRIBC 14:40
PROVIDERS: ATTEND Physician Assistant
DX: M75.42 Impingement syndrome of left shoulder (principal); M75.102 Unspecified rotator cuff tear or rupture of left shoulder, not specified as traumatic; M75.22 Bicipital tendinitis, left shoulder

== ENCOUNTER → 2018-04-09 | Day surgery (SDC) | payer OTHER ==
[2018-04-02 07:18] VITALS: Ht 152.4 cm; Wt 68.2 kg
[~2018-04-09] VITALS: Ht 152.4 cm; Wt 68.2 kg
[~2018-04-09] MED LIST changes: -AMPH10TA2 PO; -AMPH30TA2 PO; +ATROPINE SULFATE 0.1 MG/ML 5ML SYR IV PRN; -BUPRTAB PO; +EpHEDrine SULFATE INJ 50 MG/ML AMP IV PRN; +EpINEphrine INJ 1MG/ML AMP 1 MG/ML AMP ONE; +FENTANYL CITRATE INJ 50 MCG/1 ML 2 ML VIAL ONE; +FLUMAZENIL 0.1 MG/1 ML 10 ML VIAL IV PRN; +HYDROmorphone INJ 1 MG/ML SYR IV PRN; +LABETALOL HCL IV 5 MG/ML 20ML IV PRN; +LACTATED RINGER'S 1000ML 1,000 ML IV SCH; +LIDOCAINE HCL 1% 20 ML VIAL ONE; +LIDOCAINE HCL 2% 2 ML VIAL (20MG/ML) ONE; -LTHCR300 PO; +LTHSR/300 PO; +MIDAZOLAM HCL 1 MG/ML 2ML VIAL ONE; -MULTTAB58 PO; +MoRPHine SULFATE 2 MG/ML CARP IV PRN; +MoRPHine SULFATE 4 MG/ML 1 ML CARP\\VIAL IV PRN; +NALOXONE HCL 0.4 MG/1 ML VIAL/CARP IV PRN; +ONDANSETRON INJ 2 MG/ML 2 ML VIAL IV PRN; +OXYC-57 PO; +OXYCODONE/ACETAMINOPHEN 5-325 TAB PO PRN; +PROMETHAZINE HCL INJ 12.5 MG in SODIUM CHLORIDE 0.9% 50ML 50 ML IV PRN; +PROPOFOL IV EMULSION 10 MG/ML 20 ML VIAL ONE; +ROPIVACAINE 0.5% 5 MG/ML 30 ML VIAL ONE; +SODIUM CHLORIDE 0.9% 1000ML 1,000 ML IV SCH
--- NOTE | 2018-04-09 06:53 | History & Physical Bridge Note ---
H&P Re-Evaluation Bridge Note: I have examined the patient, reviewed the History & Physical and in the interval since the performance of the History & Physical I have noted the following changes of clinical significance: No changes noted
[2018-04-09] MEDS: CEFAZOLIN 1000MG IV PUSH 7.5 ML IV SCH ×2 (08:26→09:30)
[2018-04-09] MEDS: LIDOCAINE/EPINEPHRINE 1% 20 ML VIAL ONE ×2 (08:45→09:10)
--- NOTE | 2018-04-09 08:53 | [facility] Post Operative Brief Note ---
Immediate Operative Summary Operative Date Apr 09, 2018. Pre-Operative Diagnosis diabetic frozen shoulder Post-Operative Diagnosis Same Procedure(s) Performed Manipulation under anesthesia and the articular glenohumeral joint corticosteroid injection Surgeon shawna Rug Weaver Surgeon(s) toyin Estimated Blood Loss None Findings Consistent with Post-Op Diagnosis Specimens None Anesthesia Type MAC Regional Complication(s) none Disposition Accompanied Pt To Recover: no Disposition: Recovery Room / PACU
--- NOTE | 2018-04-09 09:03 | Discharge Instructions-SurgCtr ---
Discharge Instructions Date of Service Apr 09, 2018. Visit Reason for Visit: Left Shoulder Adhesive Capsulitis Discharge Discharge Diagnosis / Problem: Left shoulder adhesive capsulitis Discharge Goals Goal(s): Decrease discomfort, Improve function, Increase independence Medications Stopped Medications Name(s): Ibuprofen Last dose approx 10 days ago Activity Recommendations Activity Limitations: per Instructions/Follow-up section Weightbearing Status: Left weightbearing (as tolerated) Anesthesia . Post Anesthesia Instructions: If you have had General Anesthesia or IV Sedation: * Do not drive today. * Resume driving when surgeon permits. * Do not make important decisions or sign legal documents today. * Call surgeon for: 1. Temperature elevations greater than 101 degrees F. 2. Uncontrollable pain. 3. Excessive bleeding. 4. Persistent nausea and vomiting. 5. Medication intolerance (nausea, vomiting or rash). * For nausea and vomiting use only clear liquids such as: tea, soda, bouillon until nausea subsides, then gradually increase diet as tolerated. * If you have any concerns or questions, call your surgeon's office. If physician is unavailable and it is an emergency, call 911 or go to the nearest emergency room. . Instructions / Follow-Up Instructions / Follow-Up The following are instructions to follow after shoulder surgery ACTIVITY RECOMMENDATIONS: * Minimize activity after surgery. * No excessive walking, jogging, sports or laboring. * Return to activity is individualized depending on the patient and type of surgery. * Driving is not permitted until at least your first post operative visit. Please ask your doctor when it is safe to resume driving. * Expect increased discomfort with increased activity. Continue to ice the shoulder as needed. SCHOOL/WORK RECOMMENDATIONS: * You may return to sedentary work or school when you are feeling more comfortable. This is usually 3-7 days after surgery. MEDICATIONS: * You will have a prescription for pain medication medication after surgery. * Use the pain medication for severe pain and an anti-inflammatory for less severe pain. Once the pain medication has run out, try to use the anti-inflammatory medication. If this is not effective, contact the office for assistance. * The pain medication may cause nausea, constipation and drowsiness. You should see how they affect you before driving or similar activity. * The anti-inflammatory medication may cause stomach upset and bleeding. If this occurs let your doctor know immediately . * Take a stool softener like Colace or a laxative like Senokot to prevent constipation. DIET: * Resume previous diet. SPECIAL CARE: ICE: * Do not apply ice directly to the skin. Use a thin dressing or michelle shirt between the skin and ice bag. Apply ice for 20-30 minutes and repeat every 2-4 hours. This is especially important for the first 7-10 days after surgery. Once the pain improves, use ice as needed. ELEVATION: * You may be more comfortable sleeping in an upright position. Use the sling to elevate your arm. SLING/BRACE: * You will need to use a sling after surgery. Wear sling for comfort. May remove once block is gone. BATHING: * You may shower or sponge-bathe immediately after surgery. THERAPY: * You will begin therapy tomorrow, April 10, 2018. * Organized therapy with the therapist is important for the first 2-4 months after surgery depending on the type of procedure. During that time you will attend therapy 1-3 times per week. * You will also need to do daily exercises for range of motion and strength as instructed. FOLLOW UP VISIT: * If not already scheduled, please call the office at to schedule a follow-up appointment for 10 days after surgery and monthly thereafter. *You have a physical therapy appointment on April 10, 2018 at 2:30 PM. *You have a follow-up appointment scheduled with Dr. Sellers in April 22, 2018 at 1:15 PM. Diet Recommendations Home Diet: no limitations, resume previous diet Procedures Procedures Performed: Manipulation under anesthesia and the articular glenohumeral joint corticosteroid injection Pending Studies Studies pending at discharge: no Medical Emergencies . Who to Call and When: Medical Emergencies: If at any time you feel your situation is an emergency, please call 911 immediately. . Non-Emergent Contact Non-Emergency issues call your: Surgeon Call Non-Emergent contact if: temperature is above 101, your pain is not controlled, your pain is worsening, your pain is unusual for you, wound has increased drainage, wound has increased redness, wound has increased pain, you have any medication questions . . "Provider Documentation" section prepared by Julia Honeycutt. . [place] Drug Monitoring Program Search Results: patient reviewed within database, no issues identified
--- NOTE | 2018-04-09 09:07 | [facility] Operative Report ---
Operative Report Operative Date Apr 09, 2018. Pre-Operative Diagnosis diabetic frozen shoulder Post-Operative Diagnosis Same Procedure(s) Performed Manipulation under anesthesia and the articular glenohumeral joint corticosteroid injection Surgeon shawna Tricot Knitter Surgeon(s) toyin Estimated Blood Loss None Findings Adhesive capsulitis left shoulder Specimens None Drains None Anesthesia Type MAC Regional Complication(s) none Disposition no Recovery Room / PACU Indications Patient is a 37-year-old female with complaints of stiffness and pain of her left shoulder. She is failed conservative treatment. She had x-rays of her left shoulder which showed no bony abnormality. She had a previous MRI which showed no evidence of rotator cuff tear. Surgical options were discussed and she wished to proceed with manipulation, corticosteroid injection and possible arthroscopic capsular release of her left shoulder. Risks and complications of surgery were discussed and informed consent was obtained. Description of Procedure Patient was taken to the operating room and placed under IV sedation and given a regional block. Timeout was performed. A manipulation was performed by Dr. Sellers with my assistance. She tolerated the procedure well. I was present during the entire case. I then gave her an intra-articular corticosteroid injection with 40 cc of Depo-Medrol and 3 cc of 1% lidocaine plain. Band-Aid was applied to the injection site. She was awakened and transferred to the recovery room in stable condition. I attest to the content of the Intraoperative Record and any orders documented therein. Any exceptions are noted below.
--- NOTE | 2018-04-09 09:08 | [facility] Operative Report ---
Operative Report Operative Date Apr 09, 2018. Pre-Operative Diagnosis diabetic frozen shoulder Post-Operative Diagnosis Same Procedure(s) Performed Manipulation under anesthesia and the articular glenohumeral joint corticosteroid injection Surgeon shawna Medical Orderly Surgeon(s) toyin Estimated Blood Loss None Findings Decreased range of motion left shoulder Specimens None Anesthesia Sedation with regional left shoulder Complication(s) None Disposition Recovery Room / PACU Indications Patient is a 37-year-old diabetic with decreased range of motion of the left shoulder felt to be secondary to adhesive capsulitis. This is been refractory to nonsurgical methods of management. She is phobic of needles and did not want to have a cortisone injection in the office. She did not improve with outpatient physical therapy. Description of Procedure Informed consent obtained. Patient identified. She identified left shoulder as the operative site. A preop surgical timeout was performed. Preop dose of IV antibiotics was held. She had the anesthetic administered by the anesthesiologist. She was positioned supine on the OR table. DVT prophylaxis was not indicated.. The examination under anesthesia revealed initial range of motion to be about 100 of forward elevation. At 90 of abduction her external rotation was 45 and her internal rotation was 45. External rotation with the arm at the side was 5. After the preprocedural timeout a gentle manipulation was performed using a short lever arm. This resulted in the typical crepitation noted with release of intra-articular adhesions. Manipulation was performed in forward elevation external rotation in varying degrees of abduction and internal rotation in varying degrees of abduction. This resulted in the return of full and equal motion to the opposite side. External rotation with the arm to side was 45. At 90 of abduction external rotation was 90 internal rotation 45. Forward elevation with gravity was 170. The patient was turned partially onto her right side and a mixture of 3 cc 1% plain lidocaine and 40 mg of Depo-Medrol was injected into the glenohumeral joint from a posterior approach. She was then awakened from anesthesia without difficulty and taken to the recovery room in stable condition. There were no specimens or complications. There were no counts no blood loss. At the conclusion the operation spoke patient's mother informed her my findings. Detailed postoperative instructions were given. She will be seen in physical therapy for range of motion program. I attest to the content of the Intraoperative Record and any orders documented therein. Any exceptions are noted below.
--- NOTE | 2018-04-09 09:23 | Anesthesia Progress Nt - [facility] ---
Anesthesia Post Op Note Date & Time Apr 09, 2018 at 09:23 Vital Signs Pain Intensity: 0 Vital Signs Past 12 Hours Date Time Temp Pulse Resp B/P (MAP) Pulse Ox O2 Delivery O2 Flow Rate FiO2 04/09/18 08:57 36.4 62 12 150/73 100 Mask 6 04/09/18 08:26 103/65 04/09/18 08:24 59 5 95 04/09/18 08:24 59 04/09/18 08:21 104/65 04/09/18 08:19 64 7 98 04/09/18 08:19 62 04/09/18 08:16 107/72 04/09/18 08:14 59 04/09/18 08:14 59 7 99 04/09/18 08:11 98/68 04/09/18 08:09 55 04/09/18 08:09 57 16 100 04/09/18 08:06 141/98 04/09/18 08:05 135/91 04/09/18 08:04 67 24 100 04/09/18 08:04 67 04/09/18 07:59 68 04/09/18 07:54 59 04/09/18 07:49 62 04/09/18 07:44 69 04/09/18 07:09 36.8 68 22 123/80 (94) Room Air Notes Mental Status: alert / awake / arousable, participated in evaluation Pt Amnestic to Procedure: Yes Nausea / Vomiting: adequately controlled Pain: adequately controlled Airway Patency, RR, SpO2: stable & adequate BP & HR: stable & adequate Hydration State: stable & adequate Anesthetic Complications: no major complications apparent
[2018-04-09 09:35] VITALS: BP 113/67; TEMP 36.5; O2SAT 98
== END | disposition home or self-care (01) ==
LOC: X.SURG 06:46
PROVIDERS: ATTEND Physical Medicine & Rehabilitation Sports Medicine
DX: M75.02 Adhesive capsulitis of left shoulder (principal); E11.9 Type 2 diabetes mellitus without complications; Z79.4 Long term (current) use of insulin